=== PATIENT | male | born 1945 | race Caucasian/White ===

== ENCOUNTER 2018-04-04 06:19 | Day surgery (SDC) | payer MEDICARE, OTHER ==
[~2018-04-04] VITALS: Ht 170.2 cm; Wt 130.4 kg
[~2018-04-04 06:19] MED LIST: ATEN50 PO; FURO20; LISI20 PO; OXYACE5T PO; PROM25 PO; TAMS.4ER PO
[2018-04-04] MEDS ORDERED: TAMS.4ER (06:39)
[2018-04-04] MEDS ORDERED: METO25 (06:40)
[2018-04-04] MEDS ORDERED: POTCHL20ER (06:40)
[2018-04-04] MEDS ORDERED: SPIR25 (06:40)
== END 2018-04-04 08:18 | disposition home or self-care (01) ==
LOC: ORSCSDS 06:19
PROVIDERS: Ophthalmology
PROC: 08RK3JZ Replacement of Left Lens with Synthetic Substitute, Percutaneous Approach (ICD-10-PCS; principal; 2018-04-04 07:30)
DX: H25.12 Age-related nuclear cataract, left eye (principal); H21.81 Floppy iris syndrome; Z85.6 Personal history of leukemia; I12.9 Hypertensive chronic kidney disease with stage 1 through stage 4 chronic kidney disease, or unspecified chronic kidney disease; N18.9 Chronic kidney disease, unspecified; F17.210 Nicotine dependence, cigarettes, uncomplicated; H35.30 Unspecified macular degeneration; Z79.899 Other long term (current) drug therapy
CPT/HCPCS: J2250; J2405; J3301; J7040; V2632

== ENCOUNTER 2022-06-29 07:56 | Day surgery (SDC) | payer MEDICARE, OTHER ==
[~2022-06-29] VITALS: Ht 167.6 cm; Wt 123.1 kg
[~2022-06-29 07:56] MED LIST changes: +METO25; +POTCHL20ER; +SPIR25; +TAMS.4ER
[2022-06-29] MEDS ORDERED: GABA300 PO (08:31)
== END 2022-06-29 10:10 | disposition home or self-care (01) ==
LOC: ORSCSDS 07:56
PROVIDERS: Ophthalmology
PROC: 08RJ3JZ Replacement of Right Lens with Synthetic Substitute, Percutaneous Approach (ICD-10-PCS; principal; 2022-06-29 09:00)
DX: H25.11 Age-related nuclear cataract, right eye (principal); H21.81 Floppy iris syndrome; I10 Essential (primary) hypertension; Z79.899 Other long term (current) drug therapy; J44.9 Chronic obstructive pulmonary disease, unspecified; I50.9 Heart failure, unspecified; F17.210 Nicotine dependence, cigarettes, uncomplicated; N40.0 Benign prostatic hyperplasia without lower urinary tract symptoms; E66.01 Morbid (severe) obesity due to excess calories; Z68.41 Body mass index [BMI] 40.0-44.9, adult
CPT/HCPCS: J2001; J2250; J3010; J3301; J7040; V2632

== ENCOUNTER 2025-01-10 12:16 | Inpatient (IN) | payer MEDICARE, OTHER ==
[~2025-01-10] VITALS: Ht 167.6 cm; Wt 117.8 kg
[~2025-01-10 12:16] MED LIST changes: -FURO20; +FURO20 PO; +GABA300 PO; -METO25; +METO25 PO; -TAMS.4ER
[2025-01-10] MEDS ORDERED: Albuterol 2.5 MG/3 ML VIAL INH SCH ×2 (12:40→15:05)
[2025-01-10] MEDS ORDERED: Ipratropium/Albuterol SulF 2.5-0.5MG/3 ML Amp INH ONE (12:40)
[2025-01-10] MEDS ORDERED: MethylPREDNISolone Sod Succ 125 MG Vial IV ONE (12:40)
[2025-01-10 12:59] LABS: BASOPHILS ABSOLUTE AUTO 0.04 K/mm3 (0.00-0.23); BASOPHILS PERCENT AUTO 0 % (0-2); EOSINOPHILS ABSOLUTE AUTO 0.04 K/mm3 (0.00-0.68); EOSINOPHILS PERCENT AUTO 0 % (0-6); Hematocrit 40.8 % (37.0-53.0); Hemoglobin 13.3 g/dL (13.5-17.5); IMMATURE GRAN ABSOLUTE AUTO 0.03 K/mm3 (0.00-0.10); IMMATURE GRAN PERCENT AUTO 0 % (0-1); LYMPHOCYTES ABSOLUTE AUTO 0.73 K/mm3 (0.84-5.20); LYMPHOCYTES PERCENT AUTO 8 % (21-46); MONOCYTES ABSOLUTE AUTO 0.68 K/mm3 (0.16-1.47); MONOCYTES PERCENT AUTO 7 % (4-13); Mean Corpuscular HGB 31.5 pg (26.0-34.0); Mean Corpuscular HGB Conc 32.6 g/dL (31.5-36.5); Mean Corpuscular Volume 97 fL (80-100); Mean Platelet Volume 11.9 fL (9.1-12.4); NEUTROPHILS ABSOLUTE AUTO 7.72 K/mm3 (1.96-9.15); NEUTROPHILS PERCENT AUTO 84 % (41-73); Platelet Count 143 K/mm3 (150-400); RDW Coefficient Variation 14.1 % (11.7-14.2); RDW Standard Deviation 49.4 fL (35.1-46.3); Red Blood Cell Count 4.22 M/mm3 (4.30-5.90); White Blood Cell Count 9.24 K/mm3 (4.00-11.30)
[2025-01-10 13:32] LABS: Albumin, Blood 3.6 g/dL (3.4-5.0); Albumin/Globulin Ratio 1.1 (0.8-1.8); Bilirubin, Total 1.2 mg/dL (0.1-1.0); Bun/Creatinine Ratio 22.1 (12.0-20.0); Calcium, Blood 8.9 mg/dL (8.5-10.1); Creatinine, Blood 1.49 mg/dL (0.60-1.20); Globulin, Blood 3.2 g/dL (2.2-4.0); Potassium, Blood 4.5 mmol/L (3.5-5.5); Total Protein, Blood 6.8 g/dL (6.4-8.2)
[2025-01-10] MEDS ORDERED: Azithromycin 500 MG in NS 250 ML IV ONE (14:00)
[2025-01-10] MEDS ORDERED: Furosemide 10 MG/ML 4ML Vial IV ONE (14:00)
[2025-01-10] MEDS ORDERED: FLU VACC TS2024-25(6MOS UP)/PF 45 MCG/0.5 ML SYRINGE IM SCH (16:10)
[2025-01-10] MEDS ORDERED: Acetaminophen 500 MG Tab PO PRN (16:10)
[2025-01-10] MEDS ORDERED: Polyethylene Glycol 3350 17 gm PO PRN (16:10)
[2025-01-10] MEDS ORDERED: Aspirin 81 MG Chew PO SCH (16:35)
[2025-01-10 17:34] VITALS: BP 116/74
[2025-01-10] MEDS ORDERED: Furosemide 10 MG/ML 4ML Vial IV SCH (18:00)
--- NOTE | 2025-01-10 18:53 | NUR ---
NEW ADMIT/SHIFT SUMMARY. PATIENT ARRIVED TO [facility] AT 1730, PATIENT CAME TO ROOM VIA WHEELCHAIR. PATIENT ABLE TO STAND TRANSFER TO [facility] FROM WHEELCHAIR. PATIENT ARRIVED WITH 1 PERSONAL BELONGINGS BAG AND FAMILY AT SIDE. PATIENT IS ALERT AND ORIENTED. PATIENT IS COOPERATIVE WITH CARE ALTHOUGH RESISTIVE AT TIMES. PATIENT REPORTS HE IS HEAD STRONG AT TIMES. PATIENT ORIENTED TO ROOM AND CALL LIGHTS. PATIENT REPORTS HE DOES NOT SLEEP IN BED BUT SITTING UP MAJORITY OF THE TIME. PATIENT IS ON RA. PATIENT IS UP IN RECLINER IN ROOM EATING DINNER. CHAIR IS LOCKED. CALL LIGHT IS IN REACH.
[2025-01-10 19:26] VITALS: BP 143/63
[2025-01-11 00:21] VITALS: BP 118/88
[2025-01-11] MEDS ORDERED: DEXTROMETHORPHAN/BENZOCAINE 1 EACH LOZENGE MT PRN (01:25)
[2025-01-11 03:52] LABS: Hematocrit 36.3 % (37.0-53.0); Hemoglobin 11.8 g/dL (13.5-17.5); Mean Corpuscular HGB 31.3 pg (26.0-34.0); Mean Corpuscular HGB Conc 32.5 g/dL (31.5-36.5); Mean Corpuscular Volume 96 fL (80-100); Mean Platelet Volume 11.3 fL (9.1-12.4); Platelet Count 112 K/mm3 (150-400); RDW Coefficient Variation 13.8 % (11.7-14.2); RDW Standard Deviation 48.5 fL (35.1-46.3); Red Blood Cell Count 3.77 M/mm3 (4.30-5.90); White Blood Cell Count 4.88 K/mm3 (4.00-11.30)
[2025-01-11 03:56] VITALS: BP 124/70
[2025-01-11 04:08] LABS: Albumin, Blood 3.5 g/dL (3.4-5.0); Anion Gap 8 mmol/L (3-11); Blood Urea Nitrogen 41 mg/dL (8-24); Bun/Creatinine Ratio 26.8 (12.0-20.0); CO2, Blood 30 mmol/L (21-32); Calcium, Blood 8.5 mg/dL (8.5-10.1); Chloride, Blood 103 mmol/L (98-108); Creatinine, Blood 1.53 mg/dL (0.60-1.20); Glomerular Filtration Rate 46 (60-); Glucose, Blood 151 mg/dL (70-99); Magnesium, Blood 2.2 mg/dL (1.6-2.4); Phosphorus, Blood 2.9 mg/dL (2.5-4.9); Potassium, Blood 4.3 mmol/L (3.5-5.5); Sodium, Blood 137 mmol/L (136-145)
--- NOTE | 2025-01-11 05:09 | NUR ---
SHIFT SUMMARY PATIENT ALERT, ORIENTED x4. ABLE TO MAKE NEEDS KNOWN TO STAFF. BP STABLE. ON RA WITH SPO2 >90%. TELE READING SR-ST DURING THE NIGHT. PATIENT SAT UP IN CHAIR FOR MAJORITY OF SHIFT, PATIENT STATES MORE COMFORTABLE FOR HIM. ABL TO STAND AND PIVOT SELF TO BEDSIDE COMMODE. SIGNIFICANT OUTPUT THIS SHIFT. TOLERATING PO. NO OTHER CHANGES DURING THE NIGHT, WILL REPORT TO DAY SHIFT RN.
[2025-01-11 08:40] VITALS: BP 109/83
[2025-01-11] MEDS ORDERED: Spironolactone 25 MG Tab PO SCH (09:00)
[2025-01-11] MEDS ORDERED: Metoprolol Tartrate 25 MG Tab PO SCH (09:00)
[2025-01-11] MEDS ORDERED: Enoxaparin 40 MG/0.4 ML SYR SC SCH (09:00)
[2025-01-11] MEDS ORDERED: Tamsulosin HCl 0.4 MG Cap PO SCH ×2 (09:00→21:00)
[2025-01-11] MEDS ORDERED: Cholecalciferol 1000 Unit Tablet (=25MCG) PO SCH (09:00)
[2025-01-11] MEDS ORDERED: Nicotine 14 MG PATCH TOP SCH (09:00)
[2025-01-11] MEDS ORDERED: PredniSONE 20 MG Tab PO SCH (09:00)
[2025-01-11] MEDS ORDERED: Melatonin 3 MG Tab PO PRN (10:50)
[2025-01-11 12:58] VITALS: BP 113/68
[2025-01-11] MEDS ORDERED: METO5 PO (13:12)
[2025-01-11] MEDS ORDERED: MELO7.5 PO (13:16)
[2025-01-11] MEDS ORDERED: ALLO300 PO (13:19)
[2025-01-11] MEDS ORDERED: ESCI10 PO (13:21)
[2025-01-11] MEDS ORDERED: FURO40 PO (13:23)
[2025-01-11] MEDS ORDERED: KETO15TC TOP (13:36)
[2025-01-11] MEDS ORDERED: Hydrocortiso453.6 G1 TOP (13:41)
[2025-01-11] MEDS ORDERED: GABA300 PO (14:13)
[2025-01-11 16:06] VITALS: BP 110/73
--- NOTE | 2025-01-11 18:41 | NUR ---
End of Shift / refusing lasix Pt A&O x4. VSS. Spo2 > 92% on RA. Monitor showing SR-ST w/ PVCs. Pt SBA w/ FWW. Pt spouse brought in pt's home medications. Home medication list reconciled & w/ new orders. Pt refusing scheduled IV lasix this evening. Pt reporting it's too late to take another dose. Pt educated on importance of taking the diuretic. Pt continuing to refuse. Pt stating "I peed 12 times before midnight last night. I'm going to sleep tonight & I'm going home tomorrow regardless. I can take my lasix at home."
[2025-01-11 19:41] VITALS: BP 118/63
[2025-01-11] MEDS ORDERED: Gabapentin 300 MG Cap PO SCH (21:00)
[2025-01-12] VITALS (10 sets, daily range): BP systolic 72–172; BP diastolic 45–93
--- NOTE | 2025-01-12 02:05 | NUR ---
MD NOTIFICATION/UPDATE: PT HAD 5 BEAT RUN OF MULTIFOCAL VTACH PER SIGNAL MAINTAINER. UPON ASSESSMENT, PT REPORTS NO CHEST PAIN/PRESSURE, PALPITATIONS, DIZZINESS. HOWEVER, HE DID JUST RECENTLY HAVE ACTIVITY, MOVING FROM BED TO CHAIR. BP STABLE. THIS RN NOTIFIED NOC RESIDENT, DR. PARRA. ELECTROLYTES AND LAB ORDERS REVIEWED. NO NEW ORDERS AT THIS TIME.
[2025-01-12 04:18] LABS: Hematocrit 37.5 % (37.0-53.0); Hemoglobin 12.3 g/dL (13.5-17.5); Mean Corpuscular HGB 31.5 pg (26.0-34.0); Mean Corpuscular HGB Conc 32.8 g/dL (31.5-36.5); Mean Corpuscular Volume 96 fL (80-100); Mean Platelet Volume 11.1 fL (9.1-12.4); Platelet Count 107 K/mm3 (150-400); RDW Coefficient Variation 13.7 % (11.7-14.2); RDW Standard Deviation 48.3 fL (35.1-46.3); White Blood Cell Count 6.96 K/mm3 (4.00-11.30)
[2025-01-12 04:33] LABS: Albumin, Blood 3.5 g/dL (3.4-5.0); Anion Gap 10 mmol/L (3-11); Blood Urea Nitrogen 51 mg/dL (8-24); CO2, Blood 28 mmol/L (21-32); Calcium, Blood 8.4 mg/dL (8.5-10.1); Chloride, Blood 98 mmol/L (98-108); Creatinine, Blood 1.82 mg/dL (0.60-1.20); Glomerular Filtration Rate 37 (60-); Glucose, Blood 159 mg/dL (70-99); Magnesium, Blood 2.5 mg/dL (1.6-2.4); Phosphorus, Blood 4.3 mg/dL (2.5-4.9); Potassium, Blood 4.1 mmol/L (3.5-5.5); Sodium, Blood 132 mmol/L (136-145)
[2025-01-12] MEDS ORDERED: Ketoconazole 2% Cream 15 GM TOP SCH (09:00)
[2025-01-12] MEDS ORDERED: Allopurinol 300 MG Tab PO SCH (09:00)
[2025-01-12] MEDS ORDERED: Citalopram Hydrobromide 20 MG Tab PO SCH (09:00)
[2025-01-12] MEDS ORDERED: Hydrocortisone 2.5% Cream 30 GM Tube TOP SCH (09:00)
--- NOTE | 2025-01-12 18:41 | NUR ---
SHIFT SUMMARY: PT HAS BEEN A&Ox4, ANSWERS QUESTIONS APPROPRIATELY, COOPERATIVE W/CARE, [place] APACHE. PT REPORTS TWO EPISODES OF SOB WHILE AT REST TODAY, THESE EPISODES APPEARED TO BE R/TO POSITIONING, THEY CLEARED QUICKLY UPON PT SITTING MORE UPRIGHT. O2 SATS MAINTAINED >93% ON RA. SR W/PVCs ON MONITOR, RATE 90s, PT DENIES CP, EDEMA TO BLE, DIURESIS PER ORDERS. PT USES URINAL INDEPENDENTLY IN ROOM, 1 BM THIS SHIFT. PT RESTING IN RECLINER WHERE HE SPENT MAJORITY OF THE DAY, CALL LIGHT IS WITHIN REACH.
[2025-01-12] MEDS ORDERED: Metoprolol Tartrate 25 MG Tab PO SCH (21:00)
[2025-01-12] MEDS ORDERED: Sacubitril/Valsartan 24 MG-26 MG Tab PO SCH (21:00)
--- NOTE | 2025-01-12 21:34 | NUR ---
UPDATE: THIS RN NOTIFIED BY RT THAT PT IS REFUSING SLEEP OXIMETRY STUDY. PT EDUCATED, CONTINUES TO REFUSE.
[2025-01-13] VITALS (14 sets, daily range): BP systolic 64–106; BP diastolic 44–89
--- NOTE | 2025-01-13 00:18 | NUR ---
UPDATE: PT HAVING EPISODE OF HYPOTENSION. C/O GENERALIZED FATIGUE AND SOME DIZZINESS. PT IS CURRENTLY SITTING UP IN CHAIR. LAST BP 81/52 WITH MAP 62. THIS RN DISCUSSED WITH DR. PARRA. AVOIDING FLUIDS D/T HF WITH REDUCED EF. MIDODRINE ORDERED.
[2025-01-13] MEDS ORDERED: Midodrine 2.5 MG Tab PO ONE ×2 (01:25→02:55)
[2025-01-13] MEDS ORDERED: NS 250 ML IV ONE ×2 (02:55→06:20)
--- NOTE | 2025-01-13 03:17 | NUR ---
UPDATE: THIS RN FOLLOWED UP WITH DR. PARRA REGARDING PT'S CONSISTENT HYPOTENSION. ADDITIONAL DOSE OF MIDODRINE AND 250ML BOLUS ORDERED. SEE MAR FOR ADMINISTRATION DETAILS.
[2025-01-13 04:04] LABS: BASOPHILS ABSOLUTE AUTO 0.01 K/mm3 (0.00-0.23); BASOPHILS PERCENT AUTO 0 % (0-2); EOSINOPHILS ABSOLUTE AUTO 0.01 K/mm3 (0.00-0.68); EOSINOPHILS PERCENT AUTO 0 % (0-6); Hemoglobin 11.9 g/dL (13.5-17.5); IMMATURE GRAN ABSOLUTE AUTO 0.02 K/mm3 (0.00-0.10); IMMATURE GRAN PERCENT AUTO 0 % (0-1); LYMPHOCYTES ABSOLUTE AUTO 0.56 K/mm3 (0.84-5.20); LYMPHOCYTES PERCENT AUTO 8 % (21-46); MONOCYTES ABSOLUTE AUTO 0.49 K/mm3 (0.16-1.47); MONOCYTES PERCENT AUTO 7 % (4-13); Mean Corpuscular HGB 31.4 pg (26.0-34.0); Mean Corpuscular HGB Conc 32.2 g/dL (31.5-36.5); Mean Corpuscular Volume 98 fL (80-100); Mean Platelet Volume 11.3 fL (9.1-12.4); NEUTROPHILS ABSOLUTE AUTO 5.98 K/mm3 (1.96-9.15); NEUTROPHILS PERCENT AUTO 85 % (41-73); Platelet Count 111 K/mm3 (150-400); RDW Coefficient Variation 13.6 % (11.7-14.2); RDW Standard Deviation 49.2 fL (35.1-46.3); Red Blood Cell Count 3.79 M/mm3 (4.30-5.90); White Blood Cell Count 7.07 K/mm3 (4.00-11.30)
[2025-01-13 04:19] LABS: Bun/Creatinine Ratio 27.4 (12.0-20.0); Calcium, Blood 7.9 mg/dL (8.5-10.1); Creatinine, Blood 2.26 mg/dL (0.60-1.20); Magnesium, Blood 2.4 mg/dL (1.6-2.4); Phosphorus, Blood 5.2 mg/dL (2.5-4.9); Potassium, Blood 3.9 mmol/L (3.5-5.5)
[2025-01-13] MEDS ORDERED: Empagliflozin 10 MG TAB PO SCH (09:00)
[2025-01-13] MEDS ORDERED: Furosemide 10 MG / ML 2ML Vial IV SCH (09:00)
[2025-01-13] MEDS ORDERED: Metoprolol Tartrate 25 MG Tab PO SCH (09:00)
[2025-01-13] MEDS ORDERED: Midodrine 5 MG Tab PO PRN (12:35)
--- NOTE | 2025-01-13 17:30 | NUR ---
SHIFT SUMMARY: PT IS A&Ox4, COOPERATIVE W/CARE, ABLE TO MAKE NEEDS KNOWN. NO COMPLAINT OF SOB THIS SHIFT, O2 SATS >93% ON RA. PT HYPOTENSIVE SINCE NOC SHIFT T/OUT THIS AM, HOSPITALIST NOTIFIED, CARDIOLOGY CONSULT AT BEDSIDE, NEW ORDERS PLACED, PT MEDICATED PER EMAR, BLOOD PRESSURES CONTINUE SOFT BUT MAP HAS IMPROVED TO >65. PT DENIES CP, DIZZINESS, PALPITATIONS. SR W/PVCs, RATE 70s. PT TRANSFERING TO/FROM RECLINER W/OUT DIFFICULTY, USING URINAL AND RESTROOM INDEPENDENTLY. PT C/O DISCOMFORT TO BOTTOM, REDNESS NOTED UPON INSPECTION, MEPILEX APPLIED TO AREA, PT REPORTS IMPROVED COMFORT. AT THIS TIME, PT IS RESTING QUIETLY IN RECLINER W/CALL LIGHT IN REACH.
[2025-01-14 03:38] VITALS: BP 90/54
--- NOTE | 2025-01-14 04:16 | NUR ---
SHIFT SUMMARY PT REMAINS A&OX4. THROUGHOUT NIGHT PTs BPs REMAINED SOFT SYSTOLIC 90-101 WITH MAPS REMAINING >65. METOPROLOL HELD AT START OF SHIFT DISCUSSED. PT HAD NO C/O CP OR SOB THROUGHOUT NIGHT. REMAINED ON RA >92%. ON TELE PT REMAINS NSR 80s. PT USING FWW TO AMBULATE. CREAMS PLACED ON BLE AND KEPT ELEVATED. NO FURTHER QUESTIONS OR CONCERNS AT THIS TIME. CALL NASSAR WITHIN REACH. PT RESTING COMFORTABLY IN BED. WILL CONTINUE WITH PLAN OF CARE.
[2025-01-14 04:24] LABS: Bun/Creatinine Ratio 27.8 (12.0-20.0); Calcium, Blood 7.5 mg/dL (8.5-10.1); Creatinine, Blood 2.84 mg/dL (0.60-1.20); Potassium, Blood 4.5 mmol/L (3.5-5.5)
[2025-01-14 07:28] VITALS: BP 104/56
[2025-01-14] MEDS ORDERED: Midodrine 5 MG Tab PO PRN (07:50)
[2025-01-14 08:45] LABS: Albumin, Blood 3.4 g/dL (3.4-5.0); Albumin/Globulin Ratio 1.3 (0.8-1.8); Bilirubin, Direct 0.3 mg/dL (0.0-0.3); Bilirubin, Indirect 0.3 mg/dL (0.1-0.7); Bilirubin, Total 0.6 mg/dL (0.1-1.0); Globulin, Blood 2.7 g/dL (2.2-4.0); Total Protein, Blood 6.1 g/dL (6.4-8.2)
[2025-01-14 08:51] LABS: PCO2 Arterial 54.1 mmHg (35-45); pH Blood Arterial 7.34 (7.35-7.45)
[2025-01-14 09:44] LABS: Albumin, Blood 3.6 g/dL (3.4-5.0); Albumin/Globulin Ratio 1.4 (0.8-1.8); Bilirubin, Total 0.6 mg/dL (0.1-1.0); Bun/Creatinine Ratio 27.9 (12.0-20.0); Calcium, Blood 7.9 mg/dL (8.5-10.1); Creatinine, Blood 2.72 mg/dL (0.60-1.20); Globulin, Blood 2.6 g/dL (2.2-4.0); Potassium, Blood 4.3 mmol/L (3.5-5.5); Total Protein, Blood 6.2 g/dL (6.4-8.2)
[2025-01-14 11:29] VITALS: BP 99/61
[2025-01-14 16:04] VITALS: BP 137/63
[2025-01-14] MEDS ORDERED: Furosemide 10 MG/ML 4ML Vial IV ONE (16:30)
[2025-01-14 16:59] VITALS: BP 119/56
--- NOTE | 2025-01-14 17:31 | NUR ---
SHIFT SUMMARY PT A&Ox4, CALLS AND COMMUNICATES NEEDS APPROPRIATELY. PT WANTING TO BE MORE IND, EDUCATION PROVIDED ABOUT IMPORTANCE OF USING CALL LIGHT TO USE BATHROOM FOR SAFETY AND MONITORING I&Os, PT COMPLIANT. BP STABLE, PRN MIDODRINE PROVIDED, SINUS 80's, DENIES CP/PRESSURE. SpO2> 92% RA, DENIES SOB. SBA FOR AMBULATION. CONTINENT OF URINE AND BOWEL. NO C/O PAIN. NO OTHER EVENTS, WILL REPORT TO ONCOMING RN.
[2025-01-14 19:52] VITALS: BP 117/60
[2025-01-15 00:06] VITALS: BP 118/59
[2025-01-15 03:34] VITALS: BP 113/62
--- NOTE | 2025-01-15 04:31 | NUR ---
SHIFT SUMMARY. SHIFT HAS BEEN UNREMARKABLE, NO ACUTE CHANGES. PT AOX4, PLEASANT, COOPERATIVE WITH CARE, ABLE TO MAKE NEEDS KNOWN. HAS BEEN ABLE TO REST COMFORTABLY THROUGHOUT MOST OF SHIFT. HAS DENIED PAIN THROUGHOUT SHIFT. HAS BEEN RUNNING SINUS WITH RATE SETTLING IN THE 90s-100s RANGE. BP HAS BEEN STABLE THROUGHOUT SHIFT WITH MAP CONSISTENTLY >65. URINE OUTPUT HAS BEEN CONSISTENT, CHARTED APPROPRIATELY. HAS BEEN ABLE TO MAINTAIN ADEQUATE SATURATION ON ROOM AIR THROUGHOUT SHIFT. BED LOCKED IN LOWEST POSITION. CALL LIGHT WITHIN REACH. CONTINUING TO MONITOR.
[2025-01-15 04:49] LABS: BASOPHILS ABSOLUTE AUTO 0.01 K/mm3 (0.00-0.23); BASOPHILS PERCENT AUTO 0 % (0-2); EOSINOPHILS ABSOLUTE AUTO 0.01 K/mm3 (0.00-0.68); EOSINOPHILS PERCENT AUTO 0 % (0-6); Hematocrit 38.7 % (37.0-53.0); Hemoglobin 12.6 g/dL (13.5-17.5); IMMATURE GRAN ABSOLUTE AUTO 0.02 K/mm3 (0.00-0.10); IMMATURE GRAN PERCENT AUTO 0 % (0-1); LYMPHOCYTES ABSOLUTE AUTO 0.38 K/mm3 (0.84-5.20); LYMPHOCYTES PERCENT AUTO 5 % (21-46); MONOCYTES ABSOLUTE AUTO 0.46 K/mm3 (0.16-1.47); MONOCYTES PERCENT AUTO 6 % (4-13); Mean Corpuscular HGB 31.3 pg (26.0-34.0); Mean Corpuscular HGB Conc 32.6 g/dL (31.5-36.5); Mean Corpuscular Volume 96 fL (80-100); Mean Platelet Volume 11.6 fL (9.1-12.4); NEUTROPHILS ABSOLUTE AUTO 6.75 K/mm3 (1.96-9.15); NEUTROPHILS PERCENT AUTO 89 % (41-73); Platelet Count 115 K/mm3 (150-400); RDW Coefficient Variation 13.4 % (11.7-14.2); RDW Standard Deviation 47.4 fL (35.1-46.3); Red Blood Cell Count 4.03 M/mm3 (4.30-5.90); White Blood Cell Count 7.63 K/mm3 (4.00-11.30)
[2025-01-15 05:16] LABS: Albumin, Blood 3.2 g/dL (3.4-5.0); Albumin/Globulin Ratio 1.3 (0.8-1.8); Bilirubin, Total 0.5 mg/dL (0.1-1.0); Bun/Creatinine Ratio 34.5 (12.0-20.0); Creatinine, Blood 2.35 mg/dL (0.60-1.20); Globulin, Blood 2.5 g/dL (2.2-4.0); Magnesium, Blood 2.5 mg/dL (1.6-2.4); Phosphorus, Blood 4.5 mg/dL (2.5-4.9); Potassium, Blood 4.4 mmol/L (3.5-5.5); Total Protein, Blood 5.7 g/dL (6.4-8.2)
[2025-01-15 07:37] VITALS: BP 138/84
[2025-01-15] MEDS ORDERED: Furosemide 10 MG/ML 4ML Vial IV SCH ×3 (09:00)
[2025-01-15] MEDS ORDERED: Metoprolol Succinate 25 MG TABCR PO SCH (09:00)
[2025-01-15 12:11] VITALS: BP 117/64
--- NOTE | 2025-01-15 16:30 | NUR ---
MET WITH PATIENT "HAYDEN" AND HIS SPOUSE SWETHA. DISCUSSED HIS CURRENT SYMPTOMS. REPORTED THAT HE WAS FEELING BETTER HAS HAD A LOT OF DIURETICS AND FEELS LIKE HE CAN BREATH NOW. DISCUSSED [facility] PLANNING. THEY HAVE NEVER COMPLETED A POLST OF AD. WE DISCUSSED THE ADVANTAGES OF HAVING THESE FORMS COMPLETED AND HAVING THESE DIFFICULT DISCUSSIONS.
[2025-01-15 16:47] VITALS: BP 122/70
--- NOTE | 2025-01-15 18:45 | NUR ---
SHIFT SUMMARY: PT A&OX4. FOLLOWS COMMANDS AND MAKES NEEDS KNOWN TO STAFF. PT WAS ABLE TO AMBULATE TO THE BATHROOM WITH WALKER WITH SBA. PT RECIEVED LASIX TODAY AND HAD AN ADEQUATE AMOUT OF URINARY OUTPUT. HAS REMAINED FREE OF ANY CP. PT REPORTS FEELING ALOT BETTER TODAY. NO OTHER SIGNIFICANT EVENTS HAPPENED DURING THIS SHIFT. WILL CONTINUE TO CARE FOR PT TILL END OF SHIFT.
[2025-01-15 20:00] VITALS: BP 128/69
[2025-01-16] VITALS (7 sets, daily range): BP systolic 106–130; BP diastolic 50–71
[2025-01-16 04:28] LABS: Bun/Creatinine Ratio 38.8 (12.0-20.0); Creatinine, Blood 2.01 mg/dL (0.60-1.20); Potassium, Blood 4.6 mmol/L (3.5-5.5)
--- NOTE | 2025-01-16 04:29 | NUR ---
SHIFT SUMMARY. SHIFT HAS BEEN UNREMARKABLE, NO ACUTE CHANGES. AOX4, PLEASANT, COOPERATIVE WITH CARE, ABLE TO MAKE NEEDS KNOWN. HAS BEEN ABLE TO REST COMFORTABLY THROUGHOUT MOST OF SHIFT. HAS DENIED PAIN THROUGHOUT SHIFT. VITALS HAVE REMAINED STABLE. LOWEST MAP OF THIS SHIFT HAS BEEN 69, OTHERWISE >70. RUNNING SINUS THROUGHOUT SHIFT, RATE SETTLING IN THE 80s RANGE. STEADY 1PA TRANSFER TO BED/CHAIR. URINE OUTPUT CONSISTENT, CHARTED APPROPRIATELY. HAS MAINTAINED ADEQUATE SATURATION ON ROOM AIR. BED LOCKED IN LOWEST POSITION. CALL LIGHT LEFT WITHIN REACH. CONTINUING TO MONITOR.
--- NOTE | 2025-01-16 18:12 | NUR ---
HAYDEN REMAINS ON ROOM AIR, SEMI INDEPENDENT IN ROOM, USES THE WALKER AND SBA. VISITED T/O THE AFTERNOON. HE REMAINS ON IV LASIX, 'S PLAN FOR MONDAY DISCHARGE. ATE HIS MEALS WELL, DID NOT NEED ANY MIDODRINE FOR BLOOD PRESSURE. COUGH PRODUCTIVE OF LARGE AMOUNT OF CLEAR PHLEGM THIS EARLY AFTERNOON. CONT CURRENT PLAN OF CARE.
[2025-01-17 00:18] VITALS: BP 109/60
[2025-01-17 03:40] VITALS: BP 116/68
[2025-01-17 04:45] LABS: Bun/Creatinine Ratio 37.8 (12.0-20.0); Calcium, Blood 8.2 mg/dL (8.5-10.1); Creatinine, Blood 1.88 mg/dL (0.60-1.20); Potassium, Blood 4.3 mmol/L (3.5-5.5)
--- NOTE | 2025-01-17 05:40 | NUR ---
SHIFT SUMMARY PT A&0 X4, CALM, COOPERATIVE TO CARE. SINUS RHYTHM, 70'S-80'S, DENIES CP/PRESSURE, NUMB/TINGLING. SBP IN THE 100'S-110'S, MAP >65. O2 >92% ON RA, SOB WITH EXERTION. PT WITH RED DISCOLORATION AND SCALING TO BILATERAL LOWER EXTREMETITES. PT ALSO HAS DEEP PITTING EDEMA OF BLE AND BILAT FEET. 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 PT HAS URINAL AT BEDSIDE, USES INDPENDENTLY. PT DIURESING WELL. PT DENIES ANY QUESTIONS OR CONCERNS AT THIS TIME. WILL MONITOR PT AND REPORT TO ONCOMING RN.
[2025-01-17 08:02] VITALS: BP 123/71
[2025-01-17] MEDS ORDERED: Bumetanide 1 MG Tab PO SCH (09:00)
[2025-01-17 11:30] VITALS: BP 110/55
[2025-01-17] MEDS ORDERED: METO25ER PO (12:25)
[2025-01-17] MEDS ORDERED: TORSE20 PO (12:25)
[2025-01-17] MEDS ORDERED: Nicoderm Cq1 EAC1 TOP (12:25)
--- NOTE | 2025-01-17 14:38 | NUR ---
DISCHARGE: PT D/C PCU 11 @ APPROX 1315 VIA WHEELCHAIR. DISCHARGE INSTRUCTIONS AND EDUCATION PROVIDED.
== END 2025-01-17 13:39 | disposition home or self-care (01) | DRG 291 ==
LOC: ER 12:16 → PCU 16:05
PROVIDERS: Internal Medicine; Student in an Organized Health Care Education/Training Program; ADMIT Internal Medicine
PROC: 4A033R1 Measurement of Arterial Saturation, Peripheral, Percutaneous Approach (ICD-10-PCS; principal; 2025-01-14)
DX: I13.0 Hypertensive heart and chronic kidney disease with heart failure and stage 1 through stage 4 chronic kidney disease, or unspecified chronic kidney disease (principal); I50.43 Acute on chronic combined systolic (congestive) and diastolic (congestive) heart failure; J96.01 Acute respiratory failure with hypoxia; J96.02 Acute respiratory failure with hypercapnia; J44.1 Chronic obstructive pulmonary disease with (acute) exacerbation; Z68.41 Body mass index [BMI] 40.0-44.9, adult; N17.9 Acute kidney failure, unspecified; E87.1 Hypo-osmolality and hyponatremia; E66.01 Morbid (severe) obesity due to excess calories; N18.32 Chronic kidney disease, stage 3b; I42.9 Cardiomyopathy, unspecified; I95.9 Hypotension, unspecified; G47.33 Obstructive sleep apnea (adult) (pediatric); D63.1 Anemia in chronic kidney disease; M10.9 Gout, unspecified; F32.A Depression, unspecified; F41.9 Anxiety disorder, unspecified; I87.2 Venous insufficiency (chronic) (peripheral); F17.210 Nicotine dependence, cigarettes, uncomplicated; I44.7 Left bundle-branch block, unspecified; R26.2 Difficulty in walking, not elsewhere classified; Z79.811 Long term (current) use of aromatase inhibitors; Z79.899 Other long term (current) drug therapy; Z87.442 Personal history of urinary calculi; Z98.49 Cataract extraction status, unspecified eye; Z90.89 Acquired absence of other organs; Z85.6 Personal history of leukemia
CPT/HCPCS: 36415; 36600; 71045; 80048; 80053; 80069; 80076; 82803; 83605; 83735; 83880; 84100; 84484; 85025; 85027; 93005; 93010; 94644; 94664; 94760; 94762; 96365; 96375; 97110; 97116; 97162; 97530; 99285-25; A9270; C8929; J0456; J1650; J1940; J2919; J7050; J7512; Q9957

== ENCOUNTER → 2025-02-10 | Outpatient (CLI) | payer MEDICARE, OTHER ==
[~2025-02-10] MED LIST changes: +ALLO300 PO; +ESCI10 PO; +FURO40 PO; +Hydrocortiso453.6 G1 TOP; +KETO15TC TOP; +MELO7.5 PO; +METO25ER PO; +METO5 PO; +Nicoderm Cq1 EAC1 TOP; +TORSE20 PO
[2025-02-10 15:41] LABS: Albumin, Blood 3.1 g/dL (3.4-5.0); Bilirubin, Total 0.7 mg/dL (0.1-1.0); Bun/Creatinine Ratio 18.8 (12.0-20.0); Creatinine, Blood 1.65 mg/dL (0.60-1.20); Total Protein, Blood 6.1 g/dL (6.4-8.2)
== END ==
LOC: LAB SHORT 14:06 → LAB 14:06
PROVIDERS: Student in an Organized Health Care Education/Training Program
DX: I13.0 Hypertensive heart and chronic kidney disease with heart failure and stage 1 through stage 4 chronic kidney disease, or unspecified chronic kidney disease (principal); I95.9 Hypotension, unspecified; I44.7 Left bundle-branch block, unspecified; H35.3221 Exudative age-related macular degeneration, left eye, with active choroidal neovascularization; I50.42 Chronic combined systolic (congestive) and diastolic (congestive) heart failure; N18.9 Chronic kidney disease, unspecified; R06.02 Shortness of breath
CPT/HCPCS: 80053; 83880

== ENCOUNTER → 2025-02-25 | Outpatient (CLI) | payer MEDICARE, OTHER ==
[2025-02-25 15:13] LABS: Albumin, Blood 3.4 g/dL (3.4-5.0); Albumin/Globulin Ratio 1.1 (0.8-1.8); Bilirubin, Total 0.9 mg/dL (0.1-1.0); Bun/Creatinine Ratio 25.9 (12.0-20.0); Creatinine, Blood 1.62 mg/dL (0.60-1.20); Globulin, Blood 3.1 g/dL (2.2-4.0); Potassium, Blood 4.3 mmol/L (3.5-5.5); Total Protein, Blood 6.5 g/dL (6.4-8.2)
== END | disposition home or self-care (01) ==
LOC: LAB SHORT 13:16 → LAB 13:16
PROVIDERS: Student in an Organized Health Care Education/Training Program
DX: I50.42 Chronic combined systolic (congestive) and diastolic (congestive) heart failure (principal); E66.01 Morbid (severe) obesity due to excess calories; N18.9 Chronic kidney disease, unspecified; H35.3221 Exudative age-related macular degeneration, left eye, with active choroidal neovascularization
CPT/HCPCS: 80053

== ENCOUNTER 2025-05-18 04:11 | Emergency (ER) | payer MEDICARE, OTHER ==
[~2025-05-18] VITALS: Ht 165.1 cm; Wt 90.7 kg
[2025-05-18] MEDS ORDERED: Ketorolac Tromethamine 30mg Vial IM ONE (06:20)
[2025-05-18] MEDS ORDERED: Lidocaine 4% 1 Patch TOP ONE (06:20)
[2025-05-18 06:27] VITALS: BP 103/59
[2025-05-18] MEDS ORDERED: CYCL10 PO (07:10)
[2025-05-18] MEDS ORDERED: LIDO700A20 TOP (07:10)
== END 2025-05-18 07:12 | disposition home or self-care (01) ==
LOC: ER 04:11
DX: S29.012A Strain of muscle and tendon of back wall of thorax, initial encounter (principal); I11.0 Hypertensive heart disease with heart failure; I50.9 Heart failure, unspecified; C92.01 Acute myeloblastic leukemia, in remission; F17.200 Nicotine dependence, unspecified, uncomplicated; Z79.899 Other long term (current) drug therapy; X58.XXXA Exposure to other specified factors, initial encounter
CPT/HCPCS: 20552; 93005; 93010; 96372-59; 99283-25; A9270; J1885

== ENCOUNTER 2025-09-14 10:49 | Emergency (ER) | payer MEDICARE, OTHER ==
[~2025-09-14] VITALS: Ht 167.6 cm; Wt 98.4 kg
[~2025-09-14 10:49] MED LIST changes: +CYCL10 PO; +LIDO700A20 TOP
[2025-09-14 11:24] LABS: BASOPHILS ABSOLUTE AUTO 0.05 K/mm3 (0.00-0.23); BASOPHILS PERCENT AUTO 1 % (0-2); EOSINOPHILS ABSOLUTE AUTO 0.13 K/mm3 (0.00-0.68); EOSINOPHILS PERCENT AUTO 2 % (0-6); Hematocrit 40.6 % (37.0-53.0); Hemoglobin 13.0 g/dL (13.5-17.5); IMMATURE GRAN ABSOLUTE AUTO 0.01 K/mm3 (0.00-0.10); IMMATURE GRAN PERCENT AUTO 0 % (0-1); LYMPHOCYTES ABSOLUTE AUTO 0.79 K/mm3 (0.84-5.20); LYMPHOCYTES PERCENT AUTO 12 % (21-46); MONOCYTES ABSOLUTE AUTO 0.42 K/mm3 (0.16-1.47); MONOCYTES PERCENT AUTO 6 % (4-13); Mean Corpuscular HGB Conc 32.0 g/dL (31.5-36.5); Mean Corpuscular Volume 100 fL (80-100); NEUTROPHILS ABSOLUTE AUTO 5.47 K/mm3 (1.96-9.15); NEUTROPHILS PERCENT AUTO 80 % (41-73); NRBC ABSOLUTE 0.00 K/mm3 (0.00-0.02); NRBC Auto 0.0 /100 WBC (0.0-0.2); Platelet Count 136 K/mm3 (150-400); RDW Coefficient Variation 13.4 % (11.7-14.2); RDW Standard Deviation 49.5 fL (35.1-46.3)
[2025-09-14 11:40] LABS: Alanine Aminotransfer (ALT/SGP 21.0 U/L (12-78); Albumin, Blood 3.5 g/dL (3.4-5.0); Albumin/Globulin Ratio 1.1 (0.8-1.8); Anion Gap 10.0 mmol/L (3-11); Aspartate Aminotrans (AST/SGOT 19.0 U/L (12-37); Bilirubin, Total 0.8 mg/dL (0.1-1.0); Blood Urea Nitrogen 26.0 mg/dL (8-24); CO2, Blood 24.0 mmol/L (21-32); Calcium, Blood 8.7 mg/dL (8.5-10.1); Chloride, Blood 109.0 mmol/L (98-108); Creatinine, Blood 1.35 mg/dL (0.60-1.20); Globulin, Blood 3.3 g/dL (2.2-4.0); Glucose, Blood 123.0 mg/dL (70-99); Potassium, Blood 4.7 mmol/L (3.5-5.5); Sodium, Blood 138.0 mmol/L (136-145); Total Protein, Blood 6.8 g/dL (6.4-8.2)
[2025-09-14 11:46] LABS: Influenza A, PCR NEGATIVE (NEGATIVE); Influenza B, PCR NEGATIVE (NEGATIVE); Resp Syncytial Virus, PCR NEGATIVE (NEGATIVE); SARS-Cov-2 (COVID-19) PCR, MMC NEGATIVE (NEGATIVE)
[2025-09-14] MEDS ORDERED: AMOCLA875 PO (13:53)
[2025-09-14 14:00] VITALS: BP 120/63
== END 2025-09-14 14:10 | disposition home or self-care (01) ==
LOC: ER 10:49
PROVIDERS: Emergency Medicine
DX: J18.9 Pneumonia, unspecified organism (principal); I50.9 Heart failure, unspecified; I11.0 Hypertensive heart disease with heart failure; Z87.442 Personal history of urinary calculi; F17.200 Nicotine dependence, unspecified, uncomplicated
CPT/HCPCS: 71046; 80053; 83880; 85025; 87637; 93005; 93010; 99285-25; A9270